=== PATIENT | female | born 1975 | race American Indian/Alaskan Native ===

== ENCOUNTER 2017-11-29 18:59 | Emergency (ER) | payer MEDICARE ==
[2017-11-29 19:59] LABS: Basophils # (Auto) 0.1 K/mm3 (0.0-0.1); Basophils % (Auto) 0.9 % (0.0-1.8); Eosinophils # (Auto) 0.2 K/mm3 (0.0-0.4); Eosinophils % (Auto) 2.4 % (0.0-4.3); Hematocrit 40.3 % (30.3-42.9); Hemoglobin 13.6 gm/dl (10.1-14.3); Lymphocytes # (Auto) 3.5 K/mm3 (1.2-5.4); Mean Corpuscular HGB Conc 34 % (30-34); Mean Corpuscular Hemoglobin 31 pg (28-32); Mean Corpuscular Volume 93 fl (79-97); Monocytes # (Auto) 0.3 K/mm3 (0.0-0.8); Monocytes % (Auto) 4.2 % (0.0-7.3); Platelet Count 245 K/mm3 (140-440); Red Blood Count 4.35 M/mm3 (3.65-5.03); Red Cell Distribution Width 13.7 % (13.2-15.2)
[2017-11-29 20:23] LABS: Alanine Aminotransferase 23 units/L (7-56); Albumin 3.8 g/dL (3.9-5); BUN/Creatinine Ratio 12; Blood Urea Nitrogen 7 mg/dL (7-17); Calcium 9.1 mg/dL (8.4-10.2); Hemolysis Index 16
[2017-11-29] MEDS ORDERED: MORPHINE IV ONE ×2 (21:15→22:42)
[2017-11-29] MEDS ORDERED: CLEOCIN 900 MG/50 mL 900 MG/50 ML BAG IV ONE (21:16)
[2017-11-29] MEDS ORDERED: HumuLIN R IV ONE (21:16)
[2017-11-29] MEDS ORDERED: NACL 0.9% 50 ML ONE (21:27)
--- NOTE | 2017-11-29 21:29 | Emergency Department Report ---
HPI - General Chief Complaint: Dizziness Time Seen by Provider: 11/29/17 21:07 - HPI HPI: 42 year-old female presents to the emergency department with a three-day history of bilateral jaw swelling as well as sinus pressure and sinus headache. She denies any fever, nausea, vomiting, chest pain, shortness of breath, sore throat. The patient takes Percocet, gabapentin and a muscle relaxer through a pain management physician for chronic shoulder pain but says it has not been helping with the discomfort of her jaw and face. She also has a past medical history of CHF, hypertension, diabetes. She does not have a primary care physician. No recent travel or sick contacts at home. ED Past Medical Hx - Past Medical History Previous Medical History?: Yes Hx Hypertension: Yes Hx Congestive Heart Failure: Yes Hx Diabetes: Yes - Surgical History Past Surgical History?: Yes Additional Surgical History: hysterectomy - Social History Smoking Status: Never Smoker Substance Use Type: None - Medications Home Medications: Home Medications Medication Instructions Recorded Confirmed Last Taken Type Clindamycin [Clindamycin CAP] 300 mg PO Q6H #28 capsule 11/29/17 Unknown Rx ED Review of Systems ROS: Stated complaint: DIZZINESS/SWOLLEN JAWS Other details as noted in HPI Comment: All other systems reviewed and negative Constitutional: denies: chills, fever Eyes: denies: eye pain, eye discharge, vision change ENT: ear pain, congestion, other (facial swelling). denies: throat pain Respiratory: denies: shortness of breath, wheezing Cardiovascular: denies: chest pain, palpitations Gastrointestinal: denies: abdominal pain, nausea, diarrhea Genitourinary: denies: urgency, dysuria, discharge Musculoskeletal: denies: back pain, joint swelling Skin: denies: rash, lesions Neurological: headache. denies: weakness, numbness Physical Exam - Physical Exam Vital Signs: Vital Signs 11/29/17 11/29/17 11/29/17 19:32 19:34 21:03 Temperature 99.6 F 99.6 F Pulse Rate 98 H 95 H Respiratory 14 16 Rate Blood Pressure 126/69 126/69 O2 Sat by Pulse 97 97 99 Oximetry Physical Exam: GENERAL: The patient is well-developed well-nourished. HENT: Normocephalic. Atraumatic. Patient has moist mucous membranes. Posterior oropharynx is clear. No drooling or trismus. Normal-appearing bilateral external ear canals and tympanic membranes. There is facial swelling to the bilateral lower cheek and/or mandible. The area is firm, not fluctuant, not warm and appears to be over the area of the parotid glands. EYES: Extraocular motions are intact. Pupils equal reactive to light bilaterally. NECK: Supple. Trachea is midline. CHEST/LUNGS: Clear to auscultation. There is no respiratory distress noted. HEART/CARDIOVASCULAR: Regular. There is no tachycardia. There is no murmur. ABDOMEN: Abdomen is soft, nontender. Patient has normal bowel sounds. There is no abdominal distention. SKIN: Skin is warm and dry. NEURO: The patient is awake, alert, and oriented. The patient is cooperative. The patient has no focal neurologic deficits. The patient has normal speech. MUSCULOSKELETAL: There is no tenderness or deformity. There is no limitation range of motion. There is no evidence of acute injury. ED Course Vital Signs 11/29/17 11/29/17 11/29/17 19:32 19:34 21:03 Temperature 99.6 F 99.6 F Pulse Rate 98 H 95 H Respiratory 14 16 Rate Blood Pressure 126/69 126/69 O2 Sat by Pulse 97 97 99 Oximetry ED Medical Decision Making - Lab Data Result diagrams: 11/29/17 19:49 11/29/17 19:49 - Radiology Data Radiology results: report reviewed PROCEDURE: CT FACIAL BONES W CON TECHNIQUE: Computerized tomography of the facial bones and soft tissues with axial and coronal sections performed from the cranial aspect of the frontal sinuses to the caudal portion of the mandible without contrast material. HISTORY: facial swelling COMPARISON: No prior studies are available for comparison. FINDINGS: Bilateral facial bones including nasal bones, zygomatic arches, pterygoid plates and mandible or intact. Bilateral temporomandibular joints demonstrate normal alignment. Bilateral paranasal sinuses and mastoid air cells are clear. Bilateral orbital sigala and contents including eye bowels and retrobulbar structures are within normal limits. Bilateral parotid glands appear enlarged without any focal lesions demonstrating uniform enhancement. IMPRESSION: Bilateral parotid gland hypertrophy is suspected. Clinical correlation is recommended. Otherwise no acute abnormality. Transcribed By: [facility] [place]ictated By: RELL YADAV Electronically Authenticated By: RELL YADAV Signed Date/Time: 11/29/172222 - Medical Decision Making Patient came in with a complaint of some painful swelling to the bilateral lower face as well as some hyperglycemia. She does not have any elevation in her anion gap or acidosis and his low suspicion for DKA. She was given a liter of fluid and some IV insulin and her blood sugar came down to below 200. A CT scan of the facial bones with contrast was done that shows bilateral parotid gland hypertrophy without any signs of abscess, stone or any other enhancement. The differential diagnosis includes parotid stones, parotid tumors, Sjogren syndrome, viral mumps, sarcoidosis, parotid abscesses, among others. The patient does not have any leukocytosis. Vital signs stable including being afebrile. She was loaded with some antibiotics. She has remained stable throughout ED course. She will be discharged home with antibiotics and referrals for ENT and she has been instructed to see her primary care physician in the next few days. She has been instructed to return to the emergency Department with any worsening of her symptoms or any acute distress. - Differential Diagnosis parotitis, sialoadenitis, parotid abscess, parotid stones Critical Care Time: No Critical care attestation.: If time is entered above; I have spent that time in minutes in the direct care of this critically ill patient, excluding procedure time. ED Disposition Clinical Impression: Parotid gland enlargement, Parotitis, Hyperglycemia Disposition: DC-01 TO HOME OR SELFCARE Is pt being admited?: No Condition: Stable Instructions: Sialoadenitis (ED), Diabetic Hyperglycemia (ED) Additional Instructions: Please follow-up with your primary care physician and an ENT physician as soon as possible. Return to the emergency Department with any worsening of her symptoms, development of fever, inability to swallow or stay hydrated, or with any acute distress. Take the antibiotics as prescribed. Try and stay away from foods that are high in sugar, starches and carbohydrates to help with your blood sugar. Keep a blood sugar log. Prescriptions: Clindamycin [Clindamycin CAP] 300 mg PO Q6H #28 capsule Referrals: CIRO JONES MD [Staff Physician] - [facility] [Primary Care Provider] - SOL MCCALLUM MD [Staff Physician] - ABBIE COLON MD [Staff Physician] - [facility] Time of Disposition: 23:24
--- NOTE | 2017-11-29 22:23 | Cat Scan Report ---
FINAL REPORT PROCEDURE: CT FACIAL BONES W CON TECHNIQUE: Computerized tomography of the facial bones and soft tissues with axial and coronal sections performed from the cranial aspect of the frontal sinuses to the caudal portion of the mandible without contrast material. HISTORY: facial swelling COMPARISON: No prior studies are available for comparison. FINDINGS: Bilateral facial bones including nasal bones, zygomatic arches, pterygoid plates and mandible or intact. Bilateral temporomandibular joints demonstrate normal alignment. Bilateral paranasal sinuses and mastoid air cells are clear. Bilateral orbital sigala and contents including eye bowels and retrobulbar structures are within normal limits. Bilateral parotid glands appear enlarged without any focal lesions demonstrating uniform enhancement. IMPRESSION: Bilateral parotid gland hypertrophy is suspected. Clinical correlation is recommended. Otherwise no acute abnormality.
[2017-11-29 23:25] VITALS: BP 123/81
== END 2017-11-29 23:36 | disposition home or self-care (01) ==
LOC: ED 18:59
DX: K11.1 Hypertrophy of salivary gland (principal); K11.20 Sialoadenitis, unspecified; E11.65 Type 2 diabetes mellitus with hyperglycemia; I11.0 Hypertensive heart disease with heart failure; Z90.710 Acquired absence of both cervix and uterus
CPT/HCPCS: 36415; 70487; 80053; 82962; 85025; 96365; 96375; 96376; 99284; J2270; Q9967; J1815